=== PATIENT | male | born 1945 | race Caucasian/White ===

== ENCOUNTER 2020-11-03 11:46 | Inpatient (IN) | payer MEDICARE, BC ==
[~2020-11-03] VITALS: Ht 180.3 cm; Wt 90.0 kg
--- NOTE | 2020-11-03 12:15 | NUR ---
DR. MÁRQUEZ AT BEDSIDE.
[2020-11-03 12:51] LABS: BASOPHILS # (AUTO) 0.1 X10'3 (0-0.2); BASOPHILS % (AUTO) 0.7 % (0-1); EOSINOPHILS # (AUTO) 0.2 X10'3 (0-0.9); EOSINOPHILS % (AUTO) 2.6 % (0-6); HEMATOCRIT 44.8 % (42.0-52.0); HEMOGLOBIN 15.1 g/dl (14.0-17.9); LYMPHOCYTES # (AUTO) 1.6 X10'3 (1.1-4.8); LYMPHOCYTES % (AUTO) 18.2 % (21-51); MEAN CORPUSCULAR HEMOGLOBIN 33.4 PG (27.0-31.0); MEAN CORPUSCULAR HGB CONC 33.7 g/dL (33.0-36.5); MEAN CORPUSCULAR VOLUME 98.9 FL (78-98); MEAN PLATELET VOLUME 7.8 FL (7.4-10.4); MONOCYTES # (AUTO) 1.1 X10'3 (0-0.9); NEUTROPHILS # (AUTO) 5.9 X10'3 (1.8-7.7); NEUTROPHILS % (AUTO) 66.5 % (42-75); PLATELET COUNT 294 X10'3 (140-440); RED BLOOD COUNT 4.53 X10'6 (4.70-6.10); RED CELL DISTRIBUTION WIDTH 13.9 % (11.5-14.5); WHITE BLOOD COUNT 8.9 X10'3 (4.5-11.0)
[2020-11-03 12:54] LABS: PARTIAL THROMBOPLASTIN TIME 33 SECONDS (22-32)
[2020-11-03 12:56] LABS: ALANINE AMINOTRANSFERASE 22 U/L (12-78); ALBUMIN 4.1 G/DL (3.4-5.0); ALBUMIN/GLOBULIN RATIO 1.1 (1.1-1.5); ALKALINE PHOSPHATASE 73 IU/L (46-116); ANION GAP 9 (8-16); ASPARTATE AMINO TRANSFERASE 22 U/L (10-37); BILIRUBIN,TOTAL 0.5 MG/DL (0.1-1.0); BLOOD UREA NITROGEN 6 MG/DL (7-18); BUN/CREATININE RATIO 7.1 (5.4-32.0); CALCIUM 9.2 MG/DL (8.5-10.1); CHLORIDE 102 MMOL/L (99-107); CREATININE 0.85 MG/DL (0.60-1.10); GLUCOSE 113 MG/DL (70-104); POTASSIUM 4.1 MMOL/L (3.5-5.1); SODIUM 139 MMOL/L (135-145); TOTAL CARBON DIOXIDE 28.4 MMOL/L (24-32); TOTAL PROTEIN 7.9 G/DL (6.4-8.2); eGFR 87 ML/MIN
[2020-11-03] MEDS ORDERED: PROP40TA72 PO (15:11)
[2020-11-03] MEDS ORDERED: NIFE-33 PO (15:11)
[2020-11-03] MEDS ORDERED: ASPI-611 PO (15:11)
[2020-11-03] MEDS ORDERED: ROSU10TA28 PO (15:11)
[2020-11-03] MEDS ORDERED: MULT-227 PO (15:11)
[2020-11-03] MEDS ORDERED: magnesium 2GM in 50ml NS 50 ML IV PRN (15:20)
[2020-11-03] MEDS ORDERED: ondansetron/PF 4mg/2ml inj IV PRN (15:20)
[2020-11-03] MEDS ORDERED: acetaminophen 325mg tablet PO PRN (15:20)
[2020-11-03] MEDS ORDERED: potassium Cl 20 mEq SR tablet PO PRN ×2 (15:20)
[2020-11-03] MEDS ORDERED: magnesium Cl slow-release 64mg tablet PO PRN (15:20)
[2020-11-03] MEDS ORDERED: potassium Cl 40MEQ/1/2NS 520ml 520 ML IV PRN ×2 (15:20)
[2020-11-03] MEDS ORDERED: magnesium 4gm in 100ml NS 100 ML IV PRN (15:20)
[2020-11-03] MEDS: K and/or MAG REPLACEMENT MC SCH (18:36)
--- NOTE | 2020-11-03 18:50 | NUR ---
Dr. Watson called re: patient's current BP and home med propranalol BID. Per MD, holding propranalol at this time; patient updated on plan of care.
[2020-11-03] MEDS ORDERED: atorvastatin 20mg tablet PO SCH (21:00)
--- NOTE | 2020-11-03 21:41 | NUR ---
Patient refused lipitor, takes crestor, lipitor "gives me muscle aches".
--- NOTE | 2020-11-03 22:22 | NUR ---
Dr. Mercer notifed of refusal to take Lipitor. No new orders at this time.
--- NOTE | 2020-11-03 22:58 | NUR ---
Called [facility] for report and patient transfer; RN accepting patient is on break and will call me back.
[2020-11-03 23:50] VITALS: BP 132/68
[2020-11-04 06:33] LABS: BASOPHILS % (AUTO) 0.7 % (0-1); EOSINOPHILS # (AUTO) 0.2 X10'3 (0-0.9); EOSINOPHILS % (AUTO) 2.7 % (0-6); HEMATOCRIT 42.7 % (42.0-52.0); HEMOGLOBIN 14.3 g/dl (14.0-17.9); LYMPHOCYTES # (AUTO) 1.5 X10'3 (1.1-4.8); LYMPHOCYTES % (AUTO) 22.3 % (21-51); MEAN CORPUSCULAR HGB CONC 33.4 g/dL (33.0-36.5); MEAN CORPUSCULAR VOLUME 98.6 FL (78-98); MEAN PLATELET VOLUME 7.8 FL (7.4-10.4); MONOCYTES # (AUTO) 0.8 X10'3 (0-0.9); MONOCYTES % (AUTO) 11.3 % (2-12); NEUTROPHILS # (AUTO) 4.4 X10'3 (1.8-7.7); PLATELET COUNT 261 X10'3 (140-440); RED BLOOD COUNT 4.33 X10'6 (4.70-6.10); RED CELL DISTRIBUTION WIDTH 13.5 % (11.5-14.5); WHITE BLOOD COUNT 6.9 X10'3 (4.5-11.0)
--- NOTE | 2020-11-04 06:34 | NUR ---
Problems reprioritized. Patient report given, questions answered & plan of care reviewed with Jonah RN.
--- NOTE | 2020-11-04 06:37 | NUR ---
Patient in room [facility]009. I have received report from Laura FLOR and had the opportunity to ask questions and assume patient care.
[2020-11-04 06:47] VITALS: BP 110/47
[2020-11-04 06:55] LABS: ALBUMIN 3.4 G/DL (3.4-5.0); ANION GAP 11 (8-16); BLOOD UREA NITROGEN 6 MG/DL (7-18); BUN/CREATININE RATIO 8.8 (5.4-32.0); CALCIUM 8.5 MG/DL (8.5-10.1); CHLORIDE 104 MMOL/L (99-107); CHOL/HDL RATIO 2.8 (0.00-4.99); CHOLESTEROL 115 MG/DL (0-200); CREATININE 0.68 MG/DL (0.60-1.10); GLUCOSE 101 MG/DL (70-104); HDL CHOLESTEROL 41 MG/DL (35-60); LDL CHOLESTEROL 51 MG/DL (50-100); MAGNESIUM 2.1 MG/DL (1.5-2.4); POTASSIUM 3.6 MMOL/L (3.5-5.1); SODIUM 141 MMOL/L (135-145); TOTAL CARBON DIOXIDE 26.4 MMOL/L (24-32); TRIGLYCERIDES 125 MG/DL (20-135); eGFR > 90 ML/MIN
[2020-11-04] MEDS ORDERED: aspirin 81mg tablet.DR PO SCH (08:00)
[2020-11-04] MEDS: K and/or MAG REPLACEMENT MC SCH (08:00)
[2020-11-04] MEDS ORDERED: multivitamins, therapeutics tablet PO SCH (08:00)
[2020-11-04 10:00] VITALS: BP 115/52
--- NOTE | 2020-11-04 12:35 | NUR ---
PAGER ID: [phone] MESSAGE: Jonah Potts [id number] [place]. Follow up [facility] called and would like to you call him Dr. Roland Regan . He would like you to call. Thanks
[2020-11-04] MEDS ORDERED: iohexol 350MG/ML 100ml bottle IV ONE (12:40)
[2020-11-04] MEDS ORDERED: ATOR20TA66 PO (16:28)
--- NOTE | 2020-11-04 16:37 | NUR ---
PAGER ID: [phone] MESSAGE: Jonah Potts [phone] re: [id number] [place]. Patient has the head CT resulted. Thanks
--- NOTE | 2020-11-04 18:13 | NUR ---
Patient discharged to home, patient understands discharge teaching and expressed verbal understanding of teaching and medications. Patient will follow up with primary after discharge and is aware to not drive until symptoms subside. Patient left with all belongings and was taken to the lobby in a wheel chair with tech, and was transported home via private vehicle.
== END 2020-11-04 17:55 | disposition home or self-care (01) | DRG 123 ==
LOC: ER 11:46 → ED HOLD 15:20 → ORTHO 4S 23:25
PROVIDERS: ADMIT Internal Medicine; ATTEND Internal Medicine
PROC: B3251ZZ Computerized Tomography (CT Scan) of Bilateral Common Carotid Arteries using Low Osmolar Contrast (ICD-10-PCS; principal; 2020-11-04)
PROC: B32G1ZZ Computerized Tomography (CT Scan) of Bilateral Vertebral Arteries using Low Osmolar Contrast (ICD-10-PCS; 2020-11-04)
PROC: B32R1ZZ Computerized Tomography (CT Scan) of Intracranial Arteries using Low Osmolar Contrast (ICD-10-PCS; 2020-11-04)
PROC: B3281ZZ Computerized Tomography (CT Scan) of Bilateral Internal Carotid Arteries using Low Osmolar Contrast (ICD-10-PCS; 2020-11-04)
DX: H49.02 Third [oculomotor] nerve palsy, left eye (principal); E78.5 Hyperlipidemia, unspecified; I10 Essential (primary) hypertension; I25.10 Atherosclerotic heart disease of native coronary artery without angina pectoris; Z95.1 Presence of aortocoronary bypass graft; Z98.49 Cataract extraction status, unspecified eye; Z79.899 Other long term (current) drug therapy; Z79.82 Long term (current) use of aspirin; H53.2 Diplopia
CPT/HCPCS: 36415; 70496; 70498; 70551; 71045; 80048; 80053; 80061; 83735; 85025; 85610; 85730; 87081; 93005; 93306; 99285; G0378; Q9967